=== PATIENT | male | born 1980 | race Two or more races ===

== ENCOUNTER 2020-06-08 13:08 | Inpatient (IN) | payer OTHER ==
[~2020-06-08] VITALS: Ht 175.3 cm; Wt 127.0 kg
[~2020-06-08 13:08] MED LIST: XANAX2 MG; ZOLOFT25 MG; ZOLOFT50 MG
[2020-06-19] MEDS ORDERED: OXYC1TAB9 PO (08:05)
[2020-06-19] MEDS ORDERED: HYOSCYAMINE0.125 M1 SL (08:05)
[2020-06-20] MEDS ORDERED: PERCOCET 5-3251 EACH PO (12:36)
[2020-06-20] MEDS ORDERED: GABAPENTIN300 MG PO (12:39)
== END 2020-06-20 14:10 | disposition home or self-care (01) | DRG 419 ==
LOC: ER 13:08 → MEDJ 19:28 → SEC-K 19:28 → MEDJ 20:33
PROVIDERS: Surgery; ADMIT Internal Medicine; ATTEND Internal Medicine
PROC: 3E0F7SF Introduction of Other Gas into Respiratory Tract, Via Natural or Artificial Opening (ICD-10-PCS; 2020-06-08)
PROC: 02HV33Z Insertion of Infusion Device into Superior Vena Cava, Percutaneous Approach (ICD-10-PCS; 2020-06-09)
PROC: 0F798ZZ Dilation of Common Bile Duct, Via Natural or Artificial Opening Endoscopic (ICD-10-PCS; 2020-06-11)
PROC: BF10YZZ Fluoroscopy of Bile Ducts using Other Contrast (ICD-10-PCS; 2020-06-11)
PROC: 0FC98ZZ Extirpation of Matter from Common Bile Duct, Via Natural or Artificial Opening Endoscopic (ICD-10-PCS; 2020-06-15)
PROC: BF10YZZ Fluoroscopy of Bile Ducts using Other Contrast (ICD-10-PCS; 2020-06-18)
PROC: 0FT44ZZ Resection of Gallbladder, Percutaneous Endoscopic Approach (ICD-10-PCS; principal; 2020-06-18 16:00)
DX: K85.10 Biliary acute pancreatitis without necrosis or infection (principal); K80.70 Calculus of gallbladder and bile duct without cholecystitis without obstruction; E86.0 Dehydration; E66.8 Other obesity; Z86.19 Personal history of other infectious and parasitic diseases; Z88.0 Allergy status to penicillin; Z20.828 Contact with and (suspected) exposure to other viral communicable diseases